=== PATIENT | male | born 1945 | race African-American/Black ===

== ENCOUNTER 2019-01-26 11:01 | Inpatient (IN) | payer MEDICARE, OTHER ==
[~2019-01-26] VITALS: Ht 167.6 cm; Wt 63.2 kg
[~2019-01-26 11:01] MED LIST: ALLO300T2 PO; AMLO10TA55 PO; BENA40TA9 PO; CHLO25TA3 PO; DOCU250C91 PO; FENO160T11 PO; FERR-89 PO; OMEP20 PO; POTA8TAB60 PO
[2019-01-26] MEDS ORDERED: BARIUM SULFATE 0.1% SUSPENSION 450 ML BOTTLE PO ONE (11:30)
[2019-01-26 12:06] LABS: BASOPHILS % (AUTO) 1.5 % (0.0-2.0); EOSINOPHILS % (AUTO) 1.3 % (1.0-6.0); HEMATOCRIT 27.3 % (41-53); HEMOGLOBIN 8.6 g/dL (13.5-17.5); LYMPHOCYTES # (AUTO) 2.6 K/uL (1.0-4.8); LYMPHOCYTES % (AUTO) 34.9 % (22.0-44.0); MEAN CORPUSCULAR HEMOGLOBIN 22.4 pg (26.0-34.0); MEAN CORPUSCULAR HGB CONC 31.5 G/dL (31.0-37.0); MEAN CORPUSCULAR VOLUME 71 fL (80-100); MONOCYTES # (AUTO) 0.2 K/uL (0.1-1.0); MONOCYTES % (AUTO) 2.2 % (2.0-9.0); NEUTROPHILS # (AUTO) 4.4 K/uL (1.8-7.7); NEUTROPHILS % (AUTO) 60.1 % (40.0-70.0); RED BLOOD CELL COUNT(AUTO) 3.84 MIL/uL (4.50-5.90); RED CELL DISTRIBUTION WIDTH 39.2 % (11.5-14.5)
[2019-01-26 12:13] LABS: ANION GAP 6 mmol/L (8-16); CALCIUM, TOTAL 9.1 mg/dL (8.8-10.5); CARBON DIOXIDE 26 mmol/L (22-29); CHLORIDE 105 mmol/L (98-107); CREATININE 1.31 mg/dL (0.60-1.30); GLOMERULAR FILTR. RATE CALC > 60 mL/min (>60); GLUCOSE,RANDOM 111 mg/dL (70-110); POTASSIUM 3.5 mmol/L (3.5-5.1); SODIUM SERUM 137 mmol/L (136-145); UREA NITROGEN, BLOOD 17 mg/dL (7-18)
[2019-01-26 12:18] LABS: ALANINE AMINOTRANSFERASE 20 U/L (12-78); ALBUMIN 3.1 g/dL (3.4-5.0); ALKALINE PHOSPHATASE 26 U/L (46-116); ASPARTATE AMINOTRANSFERASE 22 U/L (15-37); BILIRUBIN,TOTAL 0.3 mg/dL (0.1-1.0); TOTAL PROTEIN, SERUM 6.7 g/dL (6.4-8.2)
[2019-01-26 12:23] LABS: PLATELET COUNT (AUTO) 873 K/uL (150-450)
[2019-01-26 12:38] LABS: PLATELET MORPHOLOGY COMMENT GIANT PLTS PRESENT
[2019-01-26] MEDS ORDERED: IOVERSOL 350 MG/ML 100 ML VIAL ONE (12:58)
[2019-01-26] MEDS ORDERED: SODIUM CHLORIDE 0.9% 100 ML ONE (12:58)
[2019-01-26] MEDS ORDERED: ONDANSETRON HCL 4 MG/2 ML VIAL IVP PRN ×2 (13:00→16:15)
[2019-01-26] MEDS ORDERED: ACETAMINOPHEN 325 MG TABLET PO PRN (13:00)
[2019-01-26 15:10] VITALS: BP 115/68
[2019-01-26] MEDS ORDERED: MAGNESIUM OXIDE 400 MG TABLET PO PRN (16:15)
[2019-01-26] MEDS ORDERED: MAGNESIUM SULFATE 2 GM/WATER 50 ML IV PRN (16:15)
[2019-01-26] MEDS ORDERED: OxyCODONE HCL/ACETAMINOPHEN 5-325 MG TABLET PO PRN (16:15)
[2019-01-26] MEDS ORDERED: ZOLPIDEM TARTRATE 5 MG TABLET PO PRN (16:15)
[2019-01-26] MEDS ORDERED: MAGNESIUM SULFATE 4 GM/WATER 100 ML IV PRN (16:15)
[2019-01-26] MEDS ORDERED: MAGNESIUM HYDROXIDE SUSPENSION 30 ML UDCUP PO PRN (16:15)
[2019-01-26] MEDS ORDERED: POTASSIUM CHL 10 MEQ/WATER 50 ML IV PRN (16:15)
[2019-01-26] MEDS ORDERED: ALBUTEROL SULFATE 2.5 MG/0.5 ML NEB SOLUTION NEB PRN (16:15)
[2019-01-26] MEDS ORDERED: POTASSIUM CHLORIDE 20 MEQ ER TABLET PO PRN (16:15)
[2019-01-26] MEDS ORDERED: IPRATROPIUM BROMIDE 0.5 MG/2.5 ML NEB SOLUTION NEB PRN (16:15)
[2019-01-26] MEDS ORDERED: MORPHINE SULFATE 2 MG/ML SYRINGE IVP PRN (16:15)
[2019-01-26] MEDS ORDERED: BISACODYL 10 MG RECTAL RECTAL SUPPOSITORY PR PRN (16:15)
[2019-01-26] MEDS: FERROUS SULFATE 325 MG EC TABLET PO SCH (18:00)
[2019-01-26 19:06] VITALS: BP 127/62
[2019-01-26] MEDS: DOXYCYCLINE HYCLATE 100 MG CAPSULE PO SCH (20:01)
[2019-01-26] MEDS: MetroNIDAZOLE 500 MG TABLET PO SCH (20:01)
[2019-01-26] MEDS ORDERED: BISMUTH SUBSALICYLATE 262 MG CHEWABLE TABLET CHEW SCH (21:00)
[2019-01-26] MEDS: BISMUTH SUBSALICYLATE 262 MG CHEWABLE TABLET CHEW SCH (21:00)
[2019-01-26] MEDS: OMEPRAZOLE 20 MG CAPSULE PO SCH (22:06)
[2019-01-26 23:42] VITALS: BP 119/64
[2019-01-27] VITALS (21 sets, daily range): BP systolic 100–130; BP diastolic 52–74
[2019-01-27 06:24] LABS: BASOPHILS % (AUTO) 1.9 % (0.0-2.0); EOSINOPHILS % (AUTO) 3.5 % (1.0-6.0); HEMATOCRIT 24.5 % (41-53); HEMOGLOBIN 7.7 g/dL (13.5-17.5); LYMPHOCYTES # (AUTO) 2.6 K/uL (1.0-4.8); LYMPHOCYTES % (AUTO) 45.1 % (22.0-44.0); MEAN CORPUSCULAR HEMOGLOBIN 22.6 pg (26.0-34.0); MEAN CORPUSCULAR HGB CONC 31.4 G/dL (31.0-37.0); MEAN CORPUSCULAR VOLUME 72 fL (80-100); MONOCYTES # (AUTO) 0.3 K/uL (0.1-1.0); NEUTROPHILS # (AUTO) 2.6 K/uL (1.8-7.7); NEUTROPHILS % (AUTO) 44.5 % (40.0-70.0); PLATELET COUNT (AUTO) 683 K/uL (150-450); RED CELL DISTRIBUTION WIDTH 38.5 % (11.5-14.5)
[2019-01-27 06:38] LABS: ALANINE AMINOTRANSFERASE 15 U/L (12-78); ALBUMIN 2.6 g/dL (3.4-5.0); ALKALINE PHOSPHATASE 23 U/L (46-116); ANION GAP 7 mmol/L (8-16); ASPARTATE AMINOTRANSFERASE 19 U/L (15-37); BILIRUBIN,TOTAL 0.3 mg/dL (0.1-1.0); CALCIUM, TOTAL 8.7 mg/dL (8.8-10.5); CARBON DIOXIDE 25 mmol/L (22-29); CHLORIDE 107 mmol/L (98-107); CREATININE 1.17 mg/dL (0.60-1.30); GLUCOSE,RANDOM 87 mg/dL (70-110); POTASSIUM 3.7 mmol/L (3.5-5.1); SODIUM SERUM 139 mmol/L (136-145); TOTAL PROTEIN, SERUM 5.8 g/dL (6.4-8.2); UREA NITROGEN, BLOOD 12 mg/dL (7-18)
[2019-01-27 06:42] LABS: GLOMERULAR FILTR. RATE CALC > 60 mL/min (>60)
[2019-01-27] MEDS: MetroNIDAZOLE 500 MG TABLET PO SCH ×2 (08:00→20:19)
[2019-01-27] MEDS: AmLODIPine BESYLATE 10 MG TABLET PO SCH (08:00)
[2019-01-27] MEDS: OMEPRAZOLE 20 MG CAPSULE PO SCH ×2 (08:00→20:20)
[2019-01-27] MEDS: FERROUS SULFATE 325 MG EC TABLET PO SCH ×3 (08:00→18:14)
[2019-01-27] MEDS: BISMUTH SUBSALICYLATE 262 MG CHEWABLE TABLET CHEW SCH ×4 (08:01→20:20)
[2019-01-27] MEDS: FENOFIBRATE 160 MG TABLET PO SCH (08:01)
[2019-01-27] MEDS: DOXYCYCLINE HYCLATE 100 MG CAPSULE PO SCH ×2 (08:01→20:19)
[2019-01-27] MEDS: CHLORTHALIDONE 25 MG TABLET PO SCH (08:01)
[2019-01-27] MEDS: ALLOPURINOL 300 MG TABLET PO SCH (08:01)
[2019-01-27] MEDS ORDERED: PANTOPRAZOLE SODIUM 40 MG DR TABLET PO SCH (09:00)
[2019-01-27] MEDS ORDERED: OMEPRAZOLE 20 MG CAPSULE PO SCH (09:00)
[2019-01-27] MEDS ORDERED: MAGNESIUM CITRATE 300 ML ORAL SOLUTION PO ONE (12:15)
[2019-01-27] MEDS ORDERED: NEOMYCIN SULFATE 500 MG TABLET PO ONE ×3 (13:00→23:00)
[2019-01-27] MEDS ORDERED: ERYTHROMYCIN BASE 500 MG TABLET PO ONE ×3 (13:00→23:00)
[2019-01-27] MEDS ORDERED: SODIUM CHLORIDE 0.9% 1,000 ML IV ONE (13:29)
[2019-01-28] VITALS (11 sets, daily range): BP systolic 110–128; BP diastolic 63–78
[2019-01-28] MEDS ORDERED: RINGERS SOLUTION,LACTATED 1,000 ML IV ONE (06:56)
[2019-01-28] MEDS ORDERED: ACETAMINOPHEN 1000 MG/ISO-OSM 100 ML IV ONE (06:56)
[2019-01-28] MEDS ORDERED: SODIUM CHLORIDE 0.9% 100 ML ONE (06:56)
[2019-01-28 07:22] LABS: BASOPHILS % (AUTO) 1.9 % (0.0-2.0); EOSINOPHILS % (AUTO) 5.2 % (1.0-6.0); HEMATOCRIT 30.8 % (41-53); LYMPHOCYTES # (AUTO) 2.4 K/uL (1.0-4.8); MEAN CORPUSCULAR HEMOGLOBIN 24.1 pg (26.0-34.0); MEAN CORPUSCULAR HGB CONC 32.5 G/dL (31.0-37.0); MEAN CORPUSCULAR VOLUME 74 fL (80-100); MONOCYTES # (AUTO) 0.3 K/uL (0.1-1.0); MONOCYTES % (AUTO) 5.1 % (2.0-9.0); NEUTROPHILS # (AUTO) 2.7 K/uL (1.8-7.7); NEUTROPHILS % (AUTO) 46.8 % (40.0-70.0); PLATELET COUNT (AUTO) 645 K/uL (150-450); RED BLOOD CELL COUNT(AUTO) 4.15 MIL/uL (4.50-5.90); RED CELL DISTRIBUTION WIDTH 34.3 % (11.5-14.5)
[2019-01-28] MEDS ORDERED: BUPIVACAINE 0.25%/EPI 1:200,000/PF 10 ML VIAL ONE (07:33)
[2019-01-28 07:36] LABS: INR 1.1 (0.9-1.1); PROTHROMBIN TIME 11.4 SEC (9.4-11.6)
[2019-01-28 07:41] LABS: ALANINE AMINOTRANSFERASE 13 U/L (12-78); ALBUMIN 2.8 g/dL (3.4-5.0); ALKALINE PHOSPHATASE 25 U/L (46-116); ANION GAP 9 mmol/L (8-16); ASPARTATE AMINOTRANSFERASE 27 U/L (15-37); BILIRUBIN,TOTAL 0.6 mg/dL (0.1-1.0); CALCIUM, TOTAL 8.6 mg/dL (8.8-10.5); CARBON DIOXIDE 23 mmol/L (22-29); CHLORIDE 106 mmol/L (98-107); CREATININE 1.01 mg/dL (0.60-1.30); GLUCOSE,RANDOM 86 mg/dL (70-110); PHOSPHORUS 2.7 mg/dL (2.5-4.9); POTASSIUM 3.6 mmol/L (3.5-5.1); SODIUM SERUM 138 mmol/L (136-145); TOTAL PROTEIN, SERUM 5.9 g/dL (6.4-8.2); UREA NITROGEN, BLOOD 9 mg/dL (7-18)
[2019-01-28 07:42] LABS: GLOMERULAR FILTR. RATE CALC > 60 mL/min (>60)
[2019-01-28] MEDS: FERROUS SULFATE 325 MG EC TABLET PO SCH ×3 (08:00→18:00)
[2019-01-28] MEDS ORDERED: MetroNIDAZOLE 500 MG/NACL 100 ML IV ONE (08:00)
[2019-01-28] MEDS ORDERED: SODIUM CHLORIDE 0.9% IRRIG BAG 1,000 ML IRRIG ONE (08:16)
[2019-01-28] MEDS ORDERED: BUPIVACAINE LIPOSOME/PF 1.3%-13.3MG/ML SUSPENSION 20 ML VIAL INJ ONE (08:30)
[2019-01-28] MEDS: OMEPRAZOLE 20 MG CAPSULE PO SCH ×2 (09:00→20:50)
[2019-01-28] MEDS: DOXYCYCLINE HYCLATE 100 MG CAPSULE PO SCH (09:00)
[2019-01-28] MEDS: FENOFIBRATE 160 MG TABLET PO SCH (09:00)
[2019-01-28] MEDS: BISMUTH SUBSALICYLATE 262 MG CHEWABLE TABLET CHEW SCH ×4 (09:00→20:50)
[2019-01-28] MEDS: ALLOPURINOL 300 MG TABLET PO SCH (09:00)
[2019-01-28] MEDS: MetroNIDAZOLE 500 MG TABLET PO SCH (09:00)
[2019-01-28] MEDS ORDERED: BUPIVACAINE HCL/PF 0.5% 10 ML VIAL ONE (09:28)
[2019-01-28] MEDS ORDERED: FentaNYL CITRATE-PF 100 MCG/2 ML VIAL IVP PRN (09:30)
[2019-01-28] MEDS ORDERED: HYDROmorphone 2 MG/ML SYRINGE IVP PRN (09:30)
[2019-01-28] MEDS ORDERED: SODIUM CHLORIDE 0.9% 500 ML IV ONE (11:42)
[2019-01-28] MEDS: CeFAZolin 1 GM/DEXTROSE 50 ML IV SCH ×2 (11:50→20:50)
[2019-01-28] MEDS ORDERED: LIDOCAINE/PF 2% 5 ML VIAL INJ ONE (12:00)
[2019-01-28] MEDS ORDERED: DEXAMETHASONE SOD PHOS 4 MG/ML VIAL IVP ONE (12:00)
[2019-01-28] MEDS ORDERED: 0.9% SODIUM CHLORIDE 10 ML VIAL IVP ONE (12:00)
[2019-01-28] MEDS ORDERED: FentaNYL CITRATE-PF 100 MCG/2 ML VIAL IVP ONE (12:00)
[2019-01-28] MEDS ORDERED: MIDAZOLAM HCL 2 MG/2 ML VIAL IVP ONE (12:00)
[2019-01-28] MEDS ORDERED: PROPOFOL 1% 20 ML VIAL IVP ONE (12:00)
[2019-01-28] MEDS ORDERED: HYDROmorphone 2 MG/ML SYRINGE IVP ONE (12:00)
[2019-01-28] MEDS ORDERED: SUCCINYLCHOLINE CHLORIDE 20 MG/ML 10 ML VIAL IVP ONE (12:00)
[2019-01-28] MEDS ORDERED: ROCURONIUM BROMIDE 10 MG/ML 5 ML VIAL IVP ONE (12:00)
[2019-01-28] MEDS ORDERED: NEOSTIGMINE METHYLSULFATE 1 MG/ML 10 ML VIAL IVP ONE (12:00)
[2019-01-28] MEDS ORDERED: EPHEDrine SULFATE 50 MG/ML VIAL IM ONE (12:00)
[2019-01-28] MEDS ORDERED: ONDANSETRON HCL 4 MG/2 ML VIAL IVP ONE (12:00)
[2019-01-28] MEDS ORDERED: GLYCOPYRROLATE 0.2 MG/ML VIAL IM ONE (12:00)
[2019-01-28] MEDS: MetroNIDAZOLE 500 MG/NACL 100 ML IV SCH ×2 (12:34→20:53)
[2019-01-28] MEDS: AmLODIPine BESYLATE 10 MG TABLET PO SCH (18:44)
[2019-01-28] MEDS: CHLORTHALIDONE 25 MG TABLET PO SCH (18:44)
[2019-01-28] MEDS ORDERED: BISACODYL 10 MG RECTAL RECTAL SUPPOSITORY PR ONE (18:45)
[2019-01-28] MEDS ORDERED: OXYGEN THERAPY IH SCH (20:00)
[2019-01-29 04:27] VITALS: BP 116/63
[2019-01-29 05:29] LABS: BASOPHILS % (AUTO) 0.3 % (0.0-2.0); EOSINOPHILS % (AUTO) 0.1 % (1.0-6.0); HEMATOCRIT 32.7 % (41-53); HEMOGLOBIN 10.5 g/dL (13.5-17.5); LYMPHOCYTES # (AUTO) 2.5 K/uL (1.0-4.8); MEAN CORPUSCULAR HEMOGLOBIN 23.7 pg (26.0-34.0); MEAN CORPUSCULAR HGB CONC 32.1 G/dL (31.0-37.0); MEAN CORPUSCULAR VOLUME 74 fL (80-100); MONOCYTES # (AUTO) 0.5 K/uL (0.1-1.0); MONOCYTES % (AUTO) 4.3 % (2.0-9.0); NEUTROPHILS # (AUTO) 7.8 K/uL (1.8-7.7); NEUTROPHILS % (AUTO) 72.3 % (40.0-70.0); PLATELET COUNT (AUTO) 667 K/uL (150-450); RED BLOOD CELL COUNT(AUTO) 4.42 MIL/uL (4.50-5.90); RED CELL DISTRIBUTION WIDTH 34.9 % (11.5-14.5)
[2019-01-29 05:44] LABS: ALANINE AMINOTRANSFERASE 14 U/L (12-78); ALBUMIN 2.8 g/dL (3.4-5.0); ALKALINE PHOSPHATASE 23 U/L (46-116); ANION GAP 10 mmol/L (8-16); ASPARTATE AMINOTRANSFERASE 20 U/L (15-37); BILIRUBIN,TOTAL 0.5 mg/dL (0.1-1.0); CALCIUM, TOTAL 8.7 mg/dL (8.8-10.5); CARBON DIOXIDE 26 mmol/L (22-29); CHLORIDE 102 mmol/L (98-107); CREATININE 1.25 mg/dL (0.60-1.30); GLUCOSE,RANDOM 116 mg/dL (70-110); PHOSPHORUS 2.9 mg/dL (2.5-4.9); SODIUM SERUM 138 mmol/L (136-145); TOTAL PROTEIN, SERUM 6.6 g/dL (6.4-8.2); UREA NITROGEN, BLOOD 12 mg/dL (7-18)
[2019-01-29 06:12] LABS: GLOMERULAR FILTR. RATE CALC > 60 mL/min (>60)
[2019-01-29 07:36] VITALS: BP 111/68
[2019-01-29] MEDS: FERROUS SULFATE 325 MG EC TABLET PO SCH ×3 (08:00→16:11)
[2019-01-29 08:16] LABS: PLATELET MORPHOLOGY COMMENT LARGE PLTS PRESENT
[2019-01-29] MEDS: BISMUTH SUBSALICYLATE 262 MG CHEWABLE TABLET CHEW SCH ×4 (08:50→20:26)
[2019-01-29] MEDS: FENOFIBRATE 160 MG TABLET PO SCH (08:50)
[2019-01-29] MEDS: ALLOPURINOL 300 MG TABLET PO SCH (08:51)
[2019-01-29] MEDS: AmLODIPine BESYLATE 10 MG TABLET PO SCH (08:53)
[2019-01-29] MEDS: CHLORTHALIDONE 25 MG TABLET PO SCH (08:56)
[2019-01-29] MEDS: OMEPRAZOLE 20 MG CAPSULE PO SCH ×2 (08:56→20:26)
[2019-01-29] MEDS ORDERED: ACETAMINOPHEN 325 MG TABLET PO PRN (10:45)
[2019-01-29 11:26] VITALS: BP_SYST 12; BP_SYST 121; BP_DIAS 67
[2019-01-29] MEDS: ACETAMINOPHEN 325 MG TABLET PO PRN ×3 (11:33→20:29)
[2019-01-29 11:49] LABS: GLUCOMETER DEV NAME(LOC) 5N.2; GLUCOSE,POINT OF CARE 92 MG/DL (70-110)
[2019-01-29 15:57] VITALS: BP 132/71
[2019-01-29 19:40] VITALS: BP 122/68
[2019-01-29 19:56] VITALS: BP 121/68
[2019-01-29] MEDS ORDERED: KETOROLAC TROMETHAMINE 30 MG/ML VIAL IVP PRN (20:45)
[2019-01-29] MEDS ORDERED: TraMADol HCL 50 MG TABLET PO PRN (20:45)
[2019-01-30 00:02] VITALS: BP 114/70
[2019-01-30] MEDS: ACETAMINOPHEN 325 MG TABLET PO PRN (03:13)
[2019-01-30 04:33] VITALS: BP 127/94
[2019-01-30 06:23] LABS: BASOPHILS % (AUTO) 0.7 % (0.0-2.0); EOSINOPHILS % (AUTO) 1.1 % (1.0-6.0); HEMATOCRIT 30.2 % (41-53); HEMOGLOBIN 9.8 g/dL (13.5-17.5); LYMPHOCYTES # (AUTO) 2.3 K/uL (1.0-4.8); LYMPHOCYTES % (AUTO) 29.4 % (22.0-44.0); MEAN CORPUSCULAR HEMOGLOBIN 24.2 pg (26.0-34.0); MEAN CORPUSCULAR HGB CONC 32.3 G/dL (31.0-37.0); MEAN CORPUSCULAR VOLUME 75 fL (80-100); MONOCYTES # (AUTO) 0.5 K/uL (0.1-1.0); NEUTROPHILS % (AUTO) 62.8 % (40.0-70.0); PLATELET COUNT (AUTO) 600 K/uL (150-450); RED BLOOD CELL COUNT(AUTO) 4.03 MIL/uL (4.50-5.90); RED CELL DISTRIBUTION WIDTH 34.2 % (11.5-14.5)
[2019-01-30 06:25] LABS: ALANINE AMINOTRANSFERASE 11 U/L (12-78); ALBUMIN 2.8 g/dL (3.4-5.0); ALKALINE PHOSPHATASE 23 U/L (46-116); ANION GAP 9 mmol/L (8-16); ASPARTATE AMINOTRANSFERASE 17 U/L (15-37); BILIRUBIN,TOTAL 0.5 mg/dL (0.1-1.0); CALCIUM, TOTAL 8.7 mg/dL (8.8-10.5); CARBON DIOXIDE 26 mmol/L (22-29); CHLORIDE 103 mmol/L (98-107); CREATININE 1.09 mg/dL (0.60-1.30); GLUCOSE,RANDOM 83 mg/dL (70-110); POTASSIUM 3.7 mmol/L (3.5-5.1); SODIUM SERUM 138 mmol/L (136-145); TOTAL PROTEIN, SERUM 6.3 g/dL (6.4-8.2); UREA NITROGEN, BLOOD 12 mg/dL (7-18)
[2019-01-30 06:30] LABS: GLOMERULAR FILTR. RATE CALC > 60 mL/min (>60)
[2019-01-30 07:19] VITALS: BP 117/68
[2019-01-30] MEDS: OMEPRAZOLE 20 MG CAPSULE PO SCH ×2 (09:17→20:27)
[2019-01-30] MEDS: FENOFIBRATE 160 MG TABLET PO SCH (09:17)
[2019-01-30] MEDS: CHLORTHALIDONE 25 MG TABLET PO SCH (09:17)
[2019-01-30] MEDS: FERROUS SULFATE 325 MG EC TABLET PO SCH ×2 (09:17→12:39)
[2019-01-30] MEDS: BISMUTH SUBSALICYLATE 262 MG CHEWABLE TABLET CHEW SCH ×5 (09:18→21:00)
[2019-01-30] MEDS: AmLODIPine BESYLATE 10 MG TABLET PO SCH (09:18)
[2019-01-30] MEDS: ALLOPURINOL 300 MG TABLET PO SCH (09:20)
[2019-01-30 11:18] VITALS: BP 110/64
[2019-01-30 15:50] VITALS: BP 119/64
[2019-01-30] MEDS: TraMADol HCL 50 MG TABLET PO PRN ×2 (16:04→21:54)
[2019-01-30 19:38] VITALS: BP 109/66
[2019-01-31 04:15] VITALS: BP 110/68
[2019-01-31 06:11] LABS: BASOPHILS % (AUTO) 0.7 % (0.0-2.0); HEMATOCRIT 29.7 % (41-53); HEMOGLOBIN 9.7 g/dL (13.5-17.5); LYMPHOCYTES # (AUTO) 2.3 K/uL (1.0-4.8); LYMPHOCYTES % (AUTO) 38.1 % (22.0-44.0); MEAN CORPUSCULAR HEMOGLOBIN 24.3 pg (26.0-34.0); MEAN CORPUSCULAR HGB CONC 32.6 G/dL (31.0-37.0); MEAN CORPUSCULAR VOLUME 75 fL (80-100); MONOCYTES # (AUTO) 0.4 K/uL (0.1-1.0); MONOCYTES % (AUTO) 6.3 % (2.0-9.0); NEUTROPHILS # (AUTO) 3.1 K/uL (1.8-7.7); NEUTROPHILS % (AUTO) 51.9 % (40.0-70.0); PLATELET COUNT (AUTO) 578 K/uL (150-450); RED BLOOD CELL COUNT(AUTO) 3.98 MIL/uL (4.50-5.90); RED CELL DISTRIBUTION WIDTH 34.8 % (11.5-14.5)
[2019-01-31 07:54] VITALS: BP 113/65
[2019-01-31] MEDS: FERROUS SULFATE 325 MG EC TABLET PO SCH ×3 (09:10→17:22)
[2019-01-31] MEDS: ALLOPURINOL 300 MG TABLET PO SCH ×2 (09:10→09:43)
[2019-01-31] MEDS: OMEPRAZOLE 20 MG CAPSULE PO SCH ×2 (09:10→21:29)
[2019-01-31] MEDS: FENOFIBRATE 160 MG TABLET PO SCH (09:10)
[2019-01-31] MEDS: CHLORTHALIDONE 25 MG TABLET PO SCH (09:10)
[2019-01-31] MEDS: AmLODIPine BESYLATE 10 MG TABLET PO SCH (09:10)
[2019-01-31] MEDS: BISACODYL 10 MG RECTAL RECTAL SUPPOSITORY PR ONE ×2 (09:11→14:54)
[2019-01-31] MEDS: BISMUTH SUBSALICYLATE 262 MG CHEWABLE TABLET CHEW SCH ×4 (09:11→20:25)
[2019-01-31 11:32] VITALS: BP 120/63
[2019-01-31 20:25] VITALS: BP 118/69
[2019-01-31] MEDS: TraMADol HCL 50 MG TABLET PO PRN (22:33)
[2019-01-31 23:52] VITALS: BP 120/65
[2019-02-01 05:00] VITALS: BP 125/67
[2019-02-01 08:44] VITALS: BP 111/59
[2019-02-01] MEDS: FENOFIBRATE 160 MG TABLET PO SCH (08:47)
[2019-02-01] MEDS: AmLODIPine BESYLATE 10 MG TABLET PO SCH (08:47)
[2019-02-01] MEDS: FERROUS SULFATE 325 MG EC TABLET PO SCH ×3 (08:47→18:02)
[2019-02-01] MEDS: BISMUTH SUBSALICYLATE 262 MG CHEWABLE TABLET CHEW SCH ×4 (08:47→21:07)
[2019-02-01] MEDS: OMEPRAZOLE 20 MG CAPSULE PO SCH ×2 (08:47→21:07)
[2019-02-01] MEDS: TraMADol HCL 50 MG TABLET PO PRN (08:47)
[2019-02-01] MEDS: CHLORTHALIDONE 25 MG TABLET PO SCH (08:48)
[2019-02-01 11:39] VITALS: BP 112/60
[2019-02-01 12:31] LABS: BASOPHILS % (AUTO) 1.1 % (0.0-2.0); EOSINOPHILS % (AUTO) 5.7 % (1.0-6.0); HEMATOCRIT 31.3 % (41-53); LYMPHOCYTES # (AUTO) 1.5 K/uL (1.0-4.8); LYMPHOCYTES % (AUTO) 26.3 % (22.0-44.0); MEAN CORPUSCULAR HGB CONC 31.8 G/dL (31.0-37.0); MEAN CORPUSCULAR VOLUME 76 fL (80-100); MONOCYTES # (AUTO) 0.3 K/uL (0.1-1.0); MONOCYTES % (AUTO) 5.1 % (2.0-9.0); NEUTROPHILS # (AUTO) 3.5 K/uL (1.8-7.7); NEUTROPHILS % (AUTO) 61.8 % (40.0-70.0); PLATELET COUNT (AUTO) 556 K/uL (150-450); RED BLOOD CELL COUNT(AUTO) 4.14 MIL/uL (4.50-5.90); RED CELL DISTRIBUTION WIDTH 34.5 % (11.5-14.5)
[2019-02-01 12:44] LABS: ALANINE AMINOTRANSFERASE 13 U/L (12-78); ALBUMIN 2.8 g/dL (3.4-5.0); ALKALINE PHOSPHATASE 27 U/L (46-116); ANION GAP 6 mmol/L (8-16); ASPARTATE AMINOTRANSFERASE 15 U/L (15-37); BILIRUBIN,TOTAL 0.3 mg/dL (0.1-1.0); CALCIUM, TOTAL 9.1 mg/dL (8.8-10.5); CARBON DIOXIDE 31 mmol/L (22-29); CHLORIDE 101 mmol/L (98-107); CREATININE 1.05 mg/dL (0.60-1.30); GLOMERULAR FILTR. RATE CALC > 60 mL/min (>60); GLUCOSE,RANDOM 98 mg/dL (70-110); POTASSIUM 3.7 mmol/L (3.5-5.1); SODIUM SERUM 138 mmol/L (136-145); TOTAL PROTEIN, SERUM 6.6 g/dL (6.4-8.2); UREA NITROGEN, BLOOD 12 mg/dL (7-18)
[2019-02-01 15:56] VITALS: BP 108/59
[2019-02-01 20:00] VITALS: BP 112/65
[2019-02-02] VITALS: BP 115/70
[2019-02-02 04:57] VITALS: BP 111/71
[2019-02-02 06:29] LABS: BASOPHILS % (AUTO) 1.4 % (0.0-2.0); EOSINOPHILS % (AUTO) 7.3 % (1.0-6.0); LYMPHOCYTES # (AUTO) 1.7 K/uL (1.0-4.8); MEAN CORPUSCULAR HEMOGLOBIN 24.5 pg (26.0-34.0); MEAN CORPUSCULAR HGB CONC 32.3 G/dL (31.0-37.0); MEAN CORPUSCULAR VOLUME 76 fL (80-100); MONOCYTES # (AUTO) 0.3 K/uL (0.1-1.0); MONOCYTES % (AUTO) 5.8 % (2.0-9.0); NEUTROPHILS # (AUTO) 2.9 K/uL (1.8-7.7); NEUTROPHILS % (AUTO) 53.5 % (40.0-70.0); PLATELET COUNT (AUTO) 534 K/uL (150-450); RED BLOOD CELL COUNT(AUTO) 4.09 MIL/uL (4.50-5.90); RED CELL DISTRIBUTION WIDTH 34.2 % (11.5-14.5)
[2019-02-02 07:20] VITALS: BP 117/66
[2019-02-02] MEDS: AmLODIPine BESYLATE 10 MG TABLET PO SCH (08:42)
[2019-02-02] MEDS: FERROUS SULFATE 325 MG EC TABLET PO SCH ×2 (08:42→12:04)
[2019-02-02] MEDS: ALLOPURINOL 300 MG TABLET PO SCH (08:44)
[2019-02-02] MEDS: OMEPRAZOLE 20 MG CAPSULE PO SCH (08:44)
[2019-02-02] MEDS: FENOFIBRATE 160 MG TABLET PO SCH (08:44)
[2019-02-02] MEDS: CHLORTHALIDONE 25 MG TABLET PO SCH (08:44)
[2019-02-02] MEDS: BISMUTH SUBSALICYLATE 262 MG CHEWABLE TABLET CHEW SCH ×2 (08:44→12:04)
[2019-02-02] MEDS ORDERED: TRAM50TA4 PO (10:46)
[2019-02-02 11:40] VITALS: BP 114/64
== END 2019-02-02 15:30 | disposition home or self-care (01) | DRG 330 ==
LOC: EMS 11:02 → 6N 13:25 → 5N 01-28 17:35 → 4E 01-31 14:35
PROVIDERS: ADMIT Internal Medicine; ATTEND Internal Medicine
PROC: 30233N1 Transfusion of Nonautologous Red Blood Cells into Peripheral Vein, Percutaneous Approach (ICD-10-PCS; 2019-01-27)
PROC: 0WQF4ZZ Repair Abdominal Wall, Percutaneous Endoscopic Approach (ICD-10-PCS; 2019-01-28)
PROC: 0WUF47Z Supplement Abdominal Wall with Autologous Tissue Substitute, Percutaneous Endoscopic Approach (ICD-10-PCS; 2019-01-28)
PROC: 0DTF4ZZ Resection of Right Large Intestine, Percutaneous Endoscopic Approach (ICD-10-PCS; principal; 2019-01-28 07:30)
DX: C18.9 Malignant neoplasm of colon, unspecified (principal); N17.9 Acute kidney failure, unspecified; B96.81 Helicobacter pylori [H. pylori] as the cause of diseases classified elsewhere; D50.0 Iron deficiency anemia secondary to blood loss (chronic); K29.70 Gastritis, unspecified, without bleeding; F10.20 Alcohol dependence, uncomplicated; E78.5 Hyperlipidemia, unspecified; I10 Essential (primary) hypertension; M10.9 Gout, unspecified; K42.9 Umbilical hernia without obstruction or gangrene; F12.90 Cannabis use, unspecified, uncomplicated; K66.0 Peritoneal adhesions (postprocedural) (postinfection); N28.1 Cyst of kidney, acquired; E86.1 Hypovolemia; M19.90 Unspecified osteoarthritis, unspecified site; Z79.899 Other long term (current) drug therapy; Z80.8 Family history of malignant neoplasm of other organs or systems; Z80.3 Family history of malignant neoplasm of breast; Z80.1 Family history of malignant neoplasm of trachea, bronchus and lung; Z82.49 Family history of ischemic heart disease and other diseases of the circulatory system; Z87.891 Personal history of nicotine dependence; Z87.11 Personal history of peptic ulcer disease; Z91.011 Allergy to milk products
CPT/HCPCS: 74177; 82378; 83735; 84100; 86850; 86900; 86901; 86920; 87081; 88309; 97116; 97161; 97166; 97530; 97535; C9290; G0378; J0131; J0330; J0690; J1100; J1170; J2250; J2270; J2405; J2704; J3010; J3490; J7030; J7040; J7050; J7120; P9016

== ENCOUNTER 2019-05-06 07:13 | Emergency (ER) | payer MEDICARE, OTHER ==
[~2019-05-06] VITALS: Ht 172.7 cm; Wt 65.9 kg
[~2019-05-06 07:13] MED LIST changes: -BENA40TA9 PO; -DOCU250C91 PO; +TRAM50TA4 PO
[2019-05-06] MEDS ORDERED: CAPE500T14 PO (07:30)
[2019-05-06 10:33] VITALS: BP 148/88
== END 2019-05-06 10:37 | disposition home or self-care (01) ==
LOC: EMS 07:19
DX: L98.6 Other infiltrative disorders of the skin and subcutaneous tissue (principal)

== ENCOUNTER → 2019-06-07 | Outpatient (CLI) | payer MEDICARE, OTHER ==
[~2019-06-07] MED LIST changes: +CAPE500T14 PO; +IOVERSOL 350 MG/ML 100 ML VIAL ONE; -OMEP20 PO; +SODIUM CHLORIDE 0.9% 100 ML ONE
== END | disposition home or self-care (01) ==
LOC: RADMN 08:40
PROVIDERS: ATTEND Internal Medicine Hematology & Oncology
DX: C18.2 Malignant neoplasm of ascending colon (principal); N28.1 Cyst of kidney, acquired; N20.0 Calculus of kidney; I25.10 Atherosclerotic heart disease of native coronary artery without angina pectoris; I70.0 Atherosclerosis of aorta; M16.0 Bilateral primary osteoarthritis of hip; M47.814 Spondylosis without myelopathy or radiculopathy, thoracic region
CPT/HCPCS: 71260; 72193; 74160; J7050; Q9967

== ENCOUNTER 2019-06-21 19:51 | Emergency (ER) | payer MEDICARE, OTHER ==
[~2019-06-21] VITALS: Ht 172.7 cm; Wt 68.2 kg
[~2019-06-21 19:51] MED LIST changes: -IOVERSOL 350 MG/ML 100 ML VIAL ONE; -SODIUM CHLORIDE 0.9% 100 ML ONE
[2019-06-21 19:53] VITALS: BP 129/79
== END 2019-06-21 21:02 | disposition home or self-care (01) ==
LOC: EMS 19:53
DX: Z48.01 Encounter for change or removal of surgical wound dressing (principal); I10 Essential (primary) hypertension; M19.90 Unspecified osteoarthritis, unspecified site; F17.210 Nicotine dependence, cigarettes, uncomplicated; Z85.038 Personal history of other malignant neoplasm of large intestine; Z92.21 Personal history of antineoplastic chemotherapy; Z79.899 Other long term (current) drug therapy; Z91.011 Allergy to milk products

== ENCOUNTER 2021-03-09 07:05 | Day surgery (SDC) | payer MEDICARE, OTHER ==
[2021-03-06 13:40] LABS: COVID AG,FIA SOURCE NASOPHARYNGEAL
[2021-03-06 13:42] LABS: BASOPHILS % (AUTO) 0.9 % (0.0-2.0); EOSINOPHILS % (AUTO) 2.1 % (1.0-6.0); HEMATOCRIT 42.3 % (41-53); HEMOGLOBIN 13.9 g/dL (13.5-17.5); LYMPHOCYTES # (AUTO) 1.1 K/uL (1.0-4.8); LYMPHOCYTES % (AUTO) 17.1 % (22.0-44.0); MEAN CORPUSCULAR HEMOGLOBIN 27.6 pg (26.0-34.0); MEAN CORPUSCULAR HGB CONC 32.8 G/dL (31.0-37.0); MEAN CORPUSCULAR VOLUME 84 fL (80-100); MONOCYTES # (AUTO) 0.5 K/uL (0.1-1.0); MONOCYTES % (AUTO) 8.3 % (2.0-9.0); NEUTROPHILS # (AUTO) 4.5 K/uL (1.8-7.7); NEUTROPHILS % (AUTO) 71.6 % (40.0-70.0); PLATELET COUNT (AUTO) 387 K/uL (150-450); RED BLOOD CELL COUNT(AUTO) 5.03 MIL/uL (4.50-5.90); RED CELL DISTRIBUTION WIDTH 15.3 % (11.5-14.5)
[2021-03-06 13:52] LABS: ANION GAP 10 mmol/L (8-16); CARBON DIOXIDE 29 mmol/L (22-29); CHLORIDE 102 mmol/L (98-107); CREATININE 1.16 mg/dL (0.60-1.30); GLUCOSE,RANDOM 97 mg/dL (70-110); POTASSIUM 3.4 mmol/L (3.5-5.1); SODIUM SERUM 141 mmol/L (136-145); UREA NITROGEN, BLOOD 20 mg/dL (7-18)
[2021-03-06 13:53] LABS: GLOMERULAR FILTR. RATE CALC > 60 mL/min (>60); INR 1.1 (0.9-1.1); PROTHROMBIN TIME 11.3 SEC (9.4-11.6)
[~2021-03-09] VITALS: Ht 172.7 cm; Wt 67.7 kg
[~2021-03-09 07:05] MED LIST changes: +POTA8TAB PO; -POTA8TAB60 PO; +SODIUM CHLORIDE 0.9% 0 ML ONE; +SODIUM CHLORIDE 0.9% 1,000 ML IV ONE; +SODIUM CHLORIDE 0.9% 1,000 ML ONE
[2021-03-09] MEDS ORDERED: LIDOCAINE/PF 1% 30 ML VIAL ONE (08:29)
[2021-03-09] MEDS ORDERED: SODIUM BICARBONATE 50 MEQ/50 ML VIAL ONE (08:29)
[2021-03-09] MEDS ORDERED: IOHEXOL 300 MG/ML 50 ML VIAL ONE ×2 (08:29→09:36)
[2021-03-09] MEDS ORDERED: IOHEXOL 300 MG/ML 100 ML VIAL ONE ×2 (08:29→09:36)
[2021-03-09] MEDS ORDERED: HEPARIN SODIUM 1000 UNITS/NS 1,000 ML ONE (08:29)
[2021-03-09] MEDS ORDERED: NITROGLYCERIN 50 MG/D5% WATER 250 ML ONE (08:36)
[2021-03-09] MEDS ORDERED: VERAPAMIL HCL 2.5 MG/ML 2 ML VIAL ONE (08:36)
[2021-03-09 08:54] VITALS: BP 137/73
[2021-03-09] MEDS ORDERED: MIDAZOLAM HCL 2 MG/2 ML VIAL ONE (09:04)
[2021-03-09] MEDS ORDERED: FentaNYL CITRATE PF 100 MCG/2 ML VIAL ONE (09:04)
[2021-03-09] MEDS ORDERED: IOHEXOL 300 MG/ML 50 ML VIAL IARTER ONE ×2 (09:30→10:00)
[2021-03-09] MEDS ORDERED: NITROGLYCERIN/D5W 50 MG/250 ML IV BOTTLE IARTER ONE (09:30)
[2021-03-09] MEDS ORDERED: IOHEXOL 300 MG/ML 100 ML VIAL IARTER ONE ×2 (09:30→10:00)
[2021-03-09] MEDS ORDERED: HEPARIN SODIUM,PORCINE 5,000 UNITS/ML VIAL IVP ONE (09:30)
[2021-03-09] MEDS ORDERED: HEPARIN SODIUM 1000 UNITS/NS 1,000 ML IARTER ONE (09:30)
[2021-03-09] MEDS ORDERED: LIDOCAINE 1% 30 ML/SOD BICARB 8.4% 4 ML SQ ONE (09:30)
[2021-03-09] MEDS ORDERED: VERAPAMIL HCL 2.5 MG/ML 2 ML VIAL IARTER ONE (09:30)
[2021-03-09] MEDS ORDERED: MIDAZOLAM HCL 2 MG/2 ML VIAL IVP ONE (09:30)
[2021-03-09] MEDS ORDERED: FentaNYL CITRATE PF 100 MCG/2 ML VIAL IVP ONE (09:30)
[2021-03-09] MEDS ORDERED: ASPIRIN 325 MG TABLET ONE (09:38)
[2021-03-09] MEDS ORDERED: TICAGRELOR 90 MG TABLET ONE (09:38)
[2021-03-09] MEDS ORDERED: EPTIFIBATIDE 2 MG/ML 10 ML VIAL IVP ONE ×2 (09:40→10:00)
[2021-03-09] MEDS ORDERED: TICAGRELOR 90 MG TABLET PO ONE (10:00)
[2021-03-09] MEDS ORDERED: ASPIRIN 325 MG TABLET PO ONE (10:00)
[2021-03-09] MEDS ORDERED: NITROGLYCERIN/D5W 50 MG/250 ML IV BOTTLE ICOR ONE (10:15)
[2021-03-09] MEDS ORDERED: VERAPAMIL HCL 2.5 MG/ML 2 ML VIAL ICOR ONE (10:15)
[2021-03-09 10:29] VITALS: BP 110/68
== END 2021-03-09 16:00 | disposition home or self-care (01) ==
LOC: CATHLAB 07:05
PROVIDERS: ATTEND Internal Medicine Cardiovascular Disease
DX: R07.9 Chest pain, unspecified (principal); I25.119 Atherosclerotic heart disease of native coronary artery with unspecified angina pectoris; R94.39 Abnormal result of other cardiovascular function study; M10.9 Gout, unspecified; I10 Essential (primary) hypertension; Z82.49 Family history of ischemic heart disease and other diseases of the circulatory system; Z98.890 Other specified postprocedural states; Z72.89 Other problems related to lifestyle; Z85.038 Personal history of other malignant neoplasm of large intestine; Z87.891 Personal history of nicotine dependence; Z88.8 Allergy status to other drugs, medicaments and biological substances; Z79.899 Other long term (current) drug therapy
CPT/HCPCS: 36415; 80048; 85025; 85610; 85730; 87426; 93005; 93458; 99152; 99153; C1874; C1887; C9600; C9803; J1327; J1644; J2250; J3010; J3490 ×4; J7030; Q9967 ×2; 92920; 92928; Z7610

== ENCOUNTER 2021-10-20 08:31 | Inpatient (IN) | payer MEDICARE, OTHER ==
[~2021-10-20] VITALS: Ht 170.2 cm; Wt 58.7 kg
[~2021-10-20 08:31] MED LIST changes: -SODIUM CHLORIDE 0.9% 0 ML ONE; -SODIUM CHLORIDE 0.9% 1,000 ML IV ONE; -SODIUM CHLORIDE 0.9% 1,000 ML ONE
[2021-10-20] MEDS ORDERED: SODIUM CHLORIDE 0.9% 1,000 ML IV ONE ×2 (08:45→12:30)
[2021-10-20 08:57] LABS: BASOPHILS % (AUTO) 0.5 % (0.0-2.0); EOSINOPHILS % (AUTO) 0.4 % (1.0-6.0); HEMOGLOBIN 12.3 g/dL (13.5-17.5); LYMPHOCYTES # (AUTO) 0.8 K/uL (1.0-4.8); LYMPHOCYTES % (AUTO) 5.2 % (22.0-44.0); MEAN CORPUSCULAR HEMOGLOBIN 26.7 pg (26.0-34.0); MEAN CORPUSCULAR HGB CONC 32.4 G/dL (31.0-37.0); MEAN CORPUSCULAR VOLUME 82 fL (80-100); MONOCYTES # (AUTO) 1.1 K/uL (0.1-1.0); MONOCYTES % (AUTO) 7.4 % (2.0-9.0); NEUTROPHILS # (AUTO) 12.4 K/uL (1.8-7.7); PLATELET COUNT (AUTO) 451 K/uL (150-450); RED BLOOD CELL COUNT(AUTO) 4.62 MIL/uL (4.50-5.90); RED CELL DISTRIBUTION WIDTH 15.3 % (11.5-14.5)
[2021-10-20 08:58] LABS: NEUTROPHILS % (AUTO) 86.5 % (40.0-70.0)
[2021-10-20] MEDS ORDERED: DILTIAZEM HCL 5 MG/ML 5 ML VIAL IVP ONE (09:00)
[2021-10-20] MEDS ORDERED: AMIODARONE HCL 360 MG in DEXTROSE 5%-WATER 242.8 ML IV ONE (09:00)
[2021-10-20 09:06] LABS: ANION GAP 11 mmol/L (8-16); CALCIUM, TOTAL 10.3 mg/dL (8.8-10.5); CARBON DIOXIDE 26 mmol/L (22-29); CHLORIDE 100 mmol/L (98-107); CREATININE 1.21 mg/dL (0.60-1.30); GLUCOSE,RANDOM 119 mg/dL (70-110); POTASSIUM 3.1 mmol/L (3.5-5.1); SODIUM SERUM 137 mmol/L (136-145); UREA NITROGEN, BLOOD 21 mg/dL (7-18)
[2021-10-20 09:07] LABS: GLOMERULAR FILTR. RATE CALC > 60 mL/min (>60)
[2021-10-20 09:12] LABS: ALANINE AMINOTRANSFERASE 22 U/L (12-78); ALBUMIN 3.2 g/dL (3.4-5.0); ALKALINE PHOSPHATASE 49 U/L (46-116); ASPARTATE AMINOTRANSFERASE 28 U/L (15-37); CREATINE KINASE, TOTAL ONLY 44 U/L (39-308); PHOSPHORUS 2.2 mg/dL (2.5-4.9); TOTAL PROTEIN, SERUM 7.9 g/dL (6.4-8.2)
[2021-10-20 09:15] LABS: INR 1.2 (0.9-1.1); PROTHROMBIN TIME 12.4 SEC (9.4-11.6)
[2021-10-20 09:23] LABS: B-TYPE NATRIURETIC PEPTIDE 125 pg/mL (0-100)
[2021-10-20] MEDS ORDERED: DIGOXIN 250 MCG/ML 2 ML AMP IVP ONE (09:30)
[2021-10-20] MEDS ORDERED: POTASSIUM CHLORIDE 20 MEQ ER TABLET PO ONE (09:30)
[2021-10-20] MEDS ORDERED: POTASSIUM PHOS,M-BASIC-D-BASIC 10 MMOL in DEXTROSE 5%-WATER 100 ML IV ONE (09:45)
[2021-10-20] MEDS ORDERED: METOPROLOL TARTRATE 50 MG TABLET PO ONE (10:15)
[2021-10-20 10:42] LABS: COVID AG,FIA SOURCE NASOPHARYNGEAL
[2021-10-20 11:11] LABS: APPEARANCE,URINE CLEAR (CLEAR); BILIRUBIN,URINE NEGATIVE (NEGATIVE); GLUCOSE, URINE (UA) NEGATIVE (NEGATIVE); KETONES,URINE NEGATIVE (NEGATIVE); LEUKOCYTE ESTERASE ,URINE NEGATIVE (NEGATIVE); NITRATE,URINE NEGATIVE (NEGATIVE); OCCULT BLOOD,URINE NEGATIVE (NEGATIVE); PH,URINE 6.5 (5.0-8.0); PROTEIN,URINE NEGATIVE (NEGATIVE); UROBILINOGEN,URINE 0.2 mg/dL (<=1.0)
[2021-10-20] MEDS ORDERED: ALBUTEROL SULFATE 2.5 MG/0.5 ML NEB SOLUTION NEB PRN (12:30)
[2021-10-20] MEDS ORDERED: MAGNESIUM HYDROXIDE SUSPENSION 30 ML UDCUP PO PRN (12:30)
[2021-10-20] MEDS ORDERED: ACETAMINOPHEN 325 MG TABLET PO PRN (12:30)
[2021-10-20 14:58] VITALS: BP 112/65
[2021-10-20] MEDS ORDERED: AMIODARONE HCL 540 MG in DEXTROSE 5%-WATER 239.2 ML IV ONE (15:00)
[2021-10-20 15:30] VITALS: BP 112/65
[2021-10-20] MEDS ORDERED: HEPARIN SODIUM,PORCINE 5,000 UNITS/ML VIAL SQ SCH (16:00)
[2021-10-20] MEDS: HEPARIN SODIUM,PORCINE 5,000 UNITS/ML VIAL SQ SCH ×2 (16:14→20:35)
[2021-10-20 20:05] VITALS: BP 110/63
[2021-10-20] MEDS: ATORVASTATIN CALCIUM 40 MG TABLET PO SCH (20:35)
[2021-10-20] MEDS: TICAGRELOR 90 MG TABLET PO SCH (20:35)
[2021-10-20] MEDS: METOPROLOL TARTRATE 25 MG TABLET PO SCH (20:35)
[2021-10-20] MEDS ORDERED: METOPROLOL TARTRATE 25 MG TABLET PO SCH (21:00)
[2021-10-21] VITALS (7 sets, daily range): BP systolic 110–122; BP diastolic 66–76
[2021-10-21] MEDS: ASPIRIN 81 MG CHEWABLE TABLET PO SCH (07:48)
[2021-10-21] MEDS: TICAGRELOR 90 MG TABLET PO SCH ×2 (07:49→08:28)
[2021-10-21] MEDS: FAMOTIDINE 20 MG TABLET PO SCH ×2 (07:49→20:10)
[2021-10-21] MEDS: HEPARIN SODIUM,PORCINE 5,000 UNITS/ML VIAL SQ SCH ×2 (07:49→20:10)
[2021-10-21] MEDS: METOPROLOL TARTRATE 25 MG TABLET PO SCH ×2 (07:49→20:10)
[2021-10-21] MEDS ORDERED: AMIODARONE HCL 750 MG in DEXTROSE 5%-WATER 485 ML IV SCH (09:00)
[2021-10-21] MEDS ORDERED: FAMOTIDINE 20 MG TABLET PO SCH (09:00)
[2021-10-21 11:50] LABS: BASOPHILS % (AUTO) 0.8 % (0.0-2.0); HEMATOCRIT 33.6 % (41-53); HEMOGLOBIN 11.2 g/dL (13.5-17.5); LYMPHOCYTES # (AUTO) 0.6 K/uL (1.0-4.8); LYMPHOCYTES % (AUTO) 8.3 % (22.0-44.0); MEAN CORPUSCULAR HEMOGLOBIN 26.9 pg (26.0-34.0); MEAN CORPUSCULAR HGB CONC 33.3 G/dL (31.0-37.0); MEAN CORPUSCULAR VOLUME 81 fL (80-100); MONOCYTES # (AUTO) 0.7 K/uL (0.1-1.0); MONOCYTES % (AUTO) 9.7 % (2.0-9.0); NEUTROPHILS % (AUTO) 80.2 % (40.0-70.0); PLATELET COUNT (AUTO) 426 K/uL (150-450); RED BLOOD CELL COUNT(AUTO) 4.16 MIL/uL (4.50-5.90); RED CELL DISTRIBUTION WIDTH 15.2 % (11.5-14.5)
[2021-10-21 12:15] LABS: ALANINE AMINOTRANSFERASE 27 U/L (12-78); ALBUMIN 2.6 g/dL (3.4-5.0); ALKALINE PHOSPHATASE 42 U/L (46-116); ANION GAP 7 mmol/L (8-16); ASPARTATE AMINOTRANSFERASE 29 U/L (15-37); BILIRUBIN,TOTAL 0.6 mg/dL (0.1-1.0); CALCIUM, TOTAL 9.3 mg/dL (8.8-10.5); CARBON DIOXIDE 29 mmol/L (22-29); CHLORIDE 102 mmol/L (98-107); CREATININE 0.89 mg/dL (0.60-1.30); GLOMERULAR FILTR. RATE CALC > 60 mL/min (>60); GLUCOSE,RANDOM 100 mg/dL (70-110); PHOSPHORUS 1.8 mg/dL (2.5-4.9); POTASSIUM 3.2 mmol/L (3.5-5.1); SODIUM SERUM 138 mmol/L (136-145); UREA NITROGEN, BLOOD 15 mg/dL (7-18)
[2021-10-21] MEDS ORDERED: MAGNESIUM SULFATE 2 GM/WATER 50 ML IV ONE (19:15)
[2021-10-21] MEDS ORDERED: POTASSIUM PHOS,M-BASIC-D-BASIC 30 MMOL in DEXTROSE 5%-WATER 250 ML IV ONE (19:15)
[2021-10-21] MEDS: ATORVASTATIN CALCIUM 40 MG TABLET PO SCH (20:10)
[2021-10-21] MEDS ORDERED: POTASSIUM CHLORIDE 20 MEQ ER TABLET PO ONE (21:30)
[2021-10-22 04:32] VITALS: BP 130/75
[2021-10-22 07:05] LABS: ANION GAP 5 mmol/L (8-16); CALCIUM, TOTAL 9.7 mg/dL (8.8-10.5); CARBON DIOXIDE 28 mmol/L (22-29); CHLORIDE 102 mmol/L (98-107); CREATININE 0.88 mg/dL (0.60-1.30); GLUCOSE,RANDOM 95 mg/dL (70-110); PHOSPHORUS 2.7 mg/dL (2.5-4.9); POTASSIUM 3.3 mmol/L (3.5-5.1); SODIUM SERUM 135 mmol/L (136-145); UREA NITROGEN, BLOOD 13 mg/dL (7-18)
[2021-10-22 07:06] LABS: GLOMERULAR FILTR. RATE CALC > 60 mL/min (>60)
[2021-10-22 07:26] VITALS: BP 131/79
[2021-10-22] MEDS: ASPIRIN 81 MG CHEWABLE TABLET PO SCH (08:19)
[2021-10-22] MEDS: METOPROLOL TARTRATE 25 MG TABLET PO SCH (08:19)
[2021-10-22] MEDS: FAMOTIDINE 20 MG TABLET PO SCH (08:20)
[2021-10-22] MEDS: HEPARIN SODIUM,PORCINE 5,000 UNITS/ML VIAL SQ SCH (08:20)
[2021-10-22] MEDS ORDERED: POTASSIUM CHLORIDE 20 MEQ ER TABLET PO ONE (09:30)
[2021-10-22 11:14] VITALS: BP 118/69
[2021-10-22 15:40] VITALS: BP 109/69
[2021-10-22] MEDS ORDERED: METO25 PO (15:58)
== END 2021-10-22 16:50 | disposition home or self-care (01) | DRG 308 ==
LOC: EMS 08:35 → 5S 12:35
PROVIDERS: ADMIT Internal Medicine; ATTEND Internal Medicine
DX: I48.92 Unspecified atrial flutter (principal); E43 Unspecified severe protein-calorie malnutrition; C78.00 Secondary malignant neoplasm of unspecified lung; C18.9 Malignant neoplasm of colon, unspecified; R55 Syncope and collapse; K21.9 Gastro-esophageal reflux disease without esophagitis; M19.90 Unspecified osteoarthritis, unspecified site; E78.5 Hyperlipidemia, unspecified; I10 Essential (primary) hypertension; J44.9 Chronic obstructive pulmonary disease, unspecified; M10.9 Gout, unspecified; E87.6 Hypokalemia; F17.210 Nicotine dependence, cigarettes, uncomplicated; D64.9 Anemia, unspecified; Z20.822 Contact with and (suspected) exposure to COVID-19; I25.10 Atherosclerotic heart disease of native coronary artery without angina pectoris; Z95.5 Presence of coronary angioplasty implant and graft; Z92.21 Personal history of antineoplastic chemotherapy; Z88.8 Allergy status to other drugs, medicaments and biological substances; Z79.899 Other long term (current) drug therapy; Z68.20 Body mass index [BMI] 20.0-20.9, adult; Z82.49 Family history of ischemic heart disease and other diseases of the circulatory system
CPT/HCPCS: 71045; 80048; 80053; 81003; 82550; 83735; 83880; 84100; 84484; 85025; 85610; 85730; 93005; 93306; 97162; 99291; J0282; J1644; J3475; J3490; J7030; J7060; 36415-L1; 36415-TC

== ENCOUNTER 2022-12-06 17:16 | Inpatient (IN) | payer MEDICARE, MEDICAID ==
[~2022-12-06] VITALS: Ht 172.7 cm; Wt 56.0 kg
[~2022-12-06 17:16] MED LIST changes: -CHLO25TA3 PO; -FERR-89 PO; +FERR325T27 PO; +METO25 PO; -POTA8TAB PO; +TRAM-559 PO; -TRAM50TA4 PO
[2022-12-06] MEDS ORDERED: ATOR40TA71 PO (17:24)
[2022-12-06] MEDS ORDERED: SODIUM CHLORIDE 0.9% 1,000 ML IV ONE (18:15)
[2022-12-06] MEDS: MORPHINE SULFATE 2 MG/ML SYRINGE IVP ONE ×2 (18:29→18:44)
[2022-12-06 18:41] LABS: BASOPHILS % (AUTO) 0.3 % (0.0-2.0); EOSINOPHILS % (AUTO) 0 % (1.0-6.0); HEMATOCRIT 38.7 % (41-53); HEMOGLOBIN 12.8 g/dL (13.5-17.5); LYMPHOCYTES # (AUTO) 0.5 K/uL (1.0-4.8); LYMPHOCYTES % (AUTO) 6.1 % (22.0-44.0); MEAN CORPUSCULAR HEMOGLOBIN 30.9 pg (26.0-34.0); MEAN CORPUSCULAR VOLUME 94 fL (80-100); MONOCYTES # (AUTO) 0.7 K/uL (0.1-1.0); MONOCYTES % (AUTO) 7.8 % (2.0-9.0); NEUTROPHILS # (AUTO) 7.4 K/uL (1.8-7.7); PLATELET COUNT (AUTO) 347 K/uL (150-450); RED BLOOD CELL COUNT(AUTO) 4.13 MIL/uL (4.50-5.90); RED CELL DISTRIBUTION WIDTH 17.2 % (11.5-14.5)
[2022-12-06 18:43] LABS: NEUTROPHILS % (AUTO) 85.8 % (40.0-70.0)
[2022-12-06] MEDS ORDERED: KETOROLAC TROMETHAMINE 30 MG/ML VIAL IVP ONE (18:45)
[2022-12-06 18:56] LABS: ALANINE AMINOTRANSFERASE 329 U/L (12-78); ALBUMIN 3.3 g/dL (3.4-5.0); ALKALINE PHOSPHATASE 86 U/L (46-116); ANION GAP 11 mmol/L (8-16); ASPARTATE AMINOTRANSFERASE 430 U/L (15-37); CALCIUM, TOTAL 8.8 mg/dL (8.8-10.5); CARBON DIOXIDE 26 mmol/L (22-29); CHLORIDE 103 mmol/L (98-107); CREATININE 0.96 mg/dL (0.60-1.30); GLUCOSE,RANDOM 97 mg/dL (70-110); LIPASE 2970 U/L (73-393); SODIUM SERUM 140 mmol/L (136-145); TOTAL PROTEIN, SERUM 7.4 g/dL (6.4-8.2); UREA NITROGEN, BLOOD 10 mg/dL (7-18)
[2022-12-06 18:59] LABS: GLOMERULAR FILTR. RATE CALC > 60 mL/min (>60); POTASSIUM 2.5 mmol/L (3.5-5.1)
[2022-12-06] MEDS ORDERED: POTASSIUM CHLORIDE 20 MEQ ER TABLET PO PRN (19:15)
[2022-12-06 19:17] LABS: LACTIC ACID 1.8 mmol/L (0.4-2.0)
[2022-12-06] MEDS: POTASSIUM CHL 10 MEQ/WATER 50 ML IV PRN ×4 (20:13→23:22)
[2022-12-06 20:35] LABS: APPEARANCE,URINE CLEAR (CLEAR); GLUCOSE, URINE (UA) NEGATIVE (NEGATIVE); KETONES,URINE NEGATIVE (NEGATIVE); LEUKOCYTE ESTERASE ,URINE NEGATIVE (NEGATIVE); NITRATE,URINE NEGATIVE (NEGATIVE); OCCULT BLOOD,URINE SMALL (NEGATIVE); PH,URINE 6.5 (5.0-8.0); PROTEIN,URINE 300-600,SEE CONFIRM mg/dL (NEGATIVE); UROBILINOGEN,URINE <=1.0 mg/dL (<=1.0)
[2022-12-06 20:37] LABS: BILIRUBIN,URINE SMALL (NEGATIVE)
[2022-12-06 20:45] LABS: SULFOSALICYLIC ACID,URINE 4+ (Negative)
[2022-12-06 20:47] LABS: BACTERIA,URINE None Seen /HPF (None Seen)
[2022-12-06] MEDS ORDERED: OxyCODONE HCL/ACETAMINOPHEN 5-325 MG TABLET PO PRN (21:30)
[2022-12-06] MEDS ORDERED: MORPHINE SULFATE 2 MG/ML SYRINGE IVP PRN ×2 (21:30→23:00)
[2022-12-06] MEDS ORDERED: ACETAMINOPHEN 325 MG TABLET PO PRN ×2 (21:30→23:00)
[2022-12-06] MEDS ORDERED: POTASSIUM CHL 20 MEQ/0.9% NS 1,000 ML IV ONE (21:30)
[2022-12-06] MEDS ORDERED: ONDANSETRON HCL 4 MG/2 ML VIAL IVP PRN ×2 (21:30→23:00)
[2022-12-06 21:45] LABS: COVID AG,FIA SOURCE NASOPHARYNGEAL
[2022-12-06] MEDS ORDERED: MAGNESIUM HYDROXIDE SUSPENSION 30 ML UDCUP PO PRN (23:00)
[2022-12-06] MEDS ORDERED: IPRATROPIUM BROMIDE 0.5 MG/2.5 ML NEB SOLUTION NEB PRN (23:00)
[2022-12-06] MEDS ORDERED: ALBUTEROL SULFATE 2.5 MG/0.5 ML NEB SOLUTION NEB PRN (23:00)
[2022-12-06] MEDS ORDERED: HYDROCODONE/ACETAMINOPHEN 5-325 MG TABLET PO PRN (23:00)
[2022-12-06] MEDS ORDERED: ZOLPIDEM TARTRATE 5 MG TABLET PO PRN (23:00)
[2022-12-06] MEDS ORDERED: BISACODYL 10 MG RECTAL RECTAL SUPPOSITORY PR PRN (23:00)
[2022-12-06] MEDS ORDERED: PIPERACILLIN/TAZO 3.375 GM/D5W 50 ML IV ONE (23:15)
[2022-12-06] MEDS: DEXTROSE 5%-0.45% SODIUM CHL 1,000 ML IV SCH (23:27)
[2022-12-07 07:19] LABS: BASOPHILS % (AUTO) 0.4 % (0.0-2.0); EOSINOPHILS % (AUTO) 0.5 % (1.0-6.0); HEMATOCRIT 32.4 % (41-53); LYMPHOCYTES # (AUTO) 0.6 K/uL (1.0-4.8); LYMPHOCYTES % (AUTO) 8.3 % (22.0-44.0); MEAN CORPUSCULAR HEMOGLOBIN 32.3 pg (26.0-34.0); MEAN CORPUSCULAR VOLUME 95 fL (80-100); MONOCYTES # (AUTO) 0.7 K/uL (0.1-1.0); MONOCYTES % (AUTO) 10.3 % (2.0-9.0); NEUTROPHILS # (AUTO) 5.7 K/uL (1.8-7.7); NEUTROPHILS % (AUTO) 80.5 % (40.0-70.0); PLATELET COUNT (AUTO) 298 K/uL (150-450); RED BLOOD CELL COUNT(AUTO) 3.41 MIL/uL (4.50-5.90); RED CELL DISTRIBUTION WIDTH 17.5 % (11.5-14.5)
[2022-12-07 07:33] LABS: ALANINE AMINOTRANSFERASE 241 U/L (12-78); ALBUMIN 2.7 g/dL (3.4-5.0); ALKALINE PHOSPHATASE 76 U/L (46-116); AMYLASE 378 U/L (25-115); ANION GAP 7 mmol/L (8-16); ASPARTATE AMINOTRANSFERASE 250 U/L (15-37); BILIRUBIN,TOTAL 2.1 mg/dL (0.1-1.0); CALCIUM, TOTAL 7.7 mg/dL (8.8-10.5); CARBON DIOXIDE 28 mmol/L (22-29); CHLORIDE 107 mmol/L (98-107); CREATININE 0.95 mg/dL (0.60-1.30); GLUCOSE,RANDOM 98 mg/dL (70-110); LIPASE 542 U/L (73-393); PHOSPHORUS 1.7 mg/dL (2.5-4.9); SODIUM SERUM 142 mmol/L (136-145); TOTAL PROTEIN, SERUM 6.3 g/dL (6.4-8.2); UREA NITROGEN, BLOOD 8 mg/dL (7-18)
[2022-12-07 07:46] LABS: GLOMERULAR FILTR. RATE CALC > 60 mL/min (>60); POTASSIUM 2.7 mmol/L (3.5-5.1)
[2022-12-07] MEDS: DOCUSATE SODIUM 100 MG CAPSULE PO SCH ×2 (09:00→20:53)
[2022-12-07] MEDS: METOPROLOL TARTRATE 25 MG TABLET PO SCH ×2 (09:00→20:54)
[2022-12-07] MEDS: ATORVASTATIN CALCIUM 40 MG TABLET PO SCH (09:00)
[2022-12-07] MEDS: ALLOPURINOL 300 MG TABLET PO SCH (09:00)
[2022-12-07] MEDS: FENOFIBRATE 160 MG TABLET PO SCH (09:00)
[2022-12-07] MEDS: AmLODIPine BESYLATE 10 MG TABLET PO SCH (09:00)
[2022-12-07 09:15] VITALS: BP 153/71
[2022-12-07] MEDS ORDERED: MEBROFENIN TC99M/MCL ISOTOPE 1 EA INJ INJ ONE (10:20)
[2022-12-07] MEDS ORDERED: GADOTERATE MEGLUMINE 10 MMOL/20 ML VIAL IVP ONE (11:01)
[2022-12-07 11:57] VITALS: BP 150/75
[2022-12-07] MEDS: DEXTROSE 5%-0.45% SODIUM CHL 1,000 ML IV SCH ×2 (14:21→21:31)
[2022-12-07] MEDS: POTASSIUM CHLORIDE 20 MEQ ER TABLET PO PRN (14:22)
[2022-12-07] MEDS: POTASSIUM CHL 10 MEQ/WATER 50 ML IV PRN ×2 (14:22→16:05)
[2022-12-07] MEDS: PANTOPRAZOLE SODIUM 40 MG/VIAL IVP SCH (15:15)
[2022-12-07 16:27] VITALS: BP 149/70
[2022-12-07 20:00] VITALS: BP 134/74
[2022-12-08] VITALS: BP 151/70
[2022-12-08 04:00] VITALS: BP 148/69
[2022-12-08 06:28] LABS: BASOPHILS % (AUTO) 0.9 % (0.0-2.0); EOSINOPHILS % (AUTO) 5.1 % (1.0-6.0); HEMATOCRIT 32.9 % (41-53); HEMOGLOBIN 11.1 g/dL (13.5-17.5); LYMPHOCYTES # (AUTO) 0.8 K/uL (1.0-4.8); LYMPHOCYTES % (AUTO) 12.7 % (22.0-44.0); MEAN CORPUSCULAR HEMOGLOBIN 31.4 pg (26.0-34.0); MEAN CORPUSCULAR HGB CONC 33.8 G/dL (31.0-37.0); MEAN CORPUSCULAR VOLUME 93 fL (80-100); MONOCYTES # (AUTO) 0.7 K/uL (0.1-1.0); MONOCYTES % (AUTO) 10.5 % (2.0-9.0); NEUTROPHILS # (AUTO) 4.4 K/uL (1.8-7.7); NEUTROPHILS % (AUTO) 70.8 % (40.0-70.0); PLATELET COUNT (AUTO) 315 K/uL (150-450); RED BLOOD CELL COUNT(AUTO) 3.54 MIL/uL (4.50-5.90); RED CELL DISTRIBUTION WIDTH 17.6 % (11.5-14.5)
[2022-12-08 06:43] LABS: ALANINE AMINOTRANSFERASE 186 U/L (12-78); ALBUMIN 2.8 g/dL (3.4-5.0); ALKALINE PHOSPHATASE 73 U/L (46-116); AMYLASE 137 U/L (25-115); ANION GAP 8 mmol/L (8-16); ASPARTATE AMINOTRANSFERASE 145 U/L (15-37); BILIRUBIN,TOTAL 1.3 mg/dL (0.1-1.0); CALCIUM, TOTAL 8.2 mg/dL (8.8-10.5); CARBON DIOXIDE 27 mmol/L (22-29); CHLORIDE 108 mmol/L (98-107); CREATININE 0.79 mg/dL (0.60-1.30); GLUCOSE,RANDOM 80 mg/dL (70-110); LIPASE 309 U/L (73-393); SODIUM SERUM 143 mmol/L (136-145); TOTAL PROTEIN, SERUM 6.7 g/dL (6.4-8.2); UREA NITROGEN, BLOOD 9 mg/dL (7-18)
[2022-12-08 07:01] LABS: GLOMERULAR FILTR. RATE CALC > 60 mL/min (>60)
[2022-12-08 07:02] LABS: PHOSPHORUS 1.3 mg/dL (2.5-4.9); POTASSIUM 2.9 mmol/L (3.5-5.1)
[2022-12-08 07:31] VITALS: BP 145/71
[2022-12-08] MEDS: DOCUSATE SODIUM 100 MG CAPSULE PO SCH ×2 (09:00→20:19)
[2022-12-08] MEDS: PANTOPRAZOLE SODIUM 40 MG/VIAL IVP SCH (09:00)
[2022-12-08] MEDS ORDERED: POTASSIUM PHOS,M-BASIC-D-BASIC 30 MMOL in DEXTROSE 5%-WATER 250 ML IV ONE (09:15)
[2022-12-08] MEDS: AmLODIPine BESYLATE 10 MG TABLET PO SCH (09:23)
[2022-12-08] MEDS: FENOFIBRATE 160 MG TABLET PO SCH (09:23)
[2022-12-08] MEDS: ATORVASTATIN CALCIUM 40 MG TABLET PO SCH (09:23)
[2022-12-08] MEDS: ALLOPURINOL 300 MG TABLET PO SCH (09:23)
[2022-12-08] MEDS: METOPROLOL TARTRATE 25 MG TABLET PO SCH ×2 (09:24→20:18)
[2022-12-08] MEDS: POTASSIUM CHLORIDE 20 MEQ ER TABLET PO PRN ×2 (09:24→20:57)
[2022-12-08] MEDS ORDERED: MAGNESIUM SULFATE 2 GM/WATER 50 ML IV ONE (09:30)
[2022-12-08] MEDS: DEXTROSE 5%-0.45% SODIUM CHL 1,000 ML IV SCH ×2 (10:00→20:00)
[2022-12-08 11:35] VITALS: BP 148/82
[2022-12-08 15:30] VITALS: BP 129/71
[2022-12-08 20:00] VITALS: BP 131/69
[2022-12-08 20:42] LABS: ANION GAP 8 mmol/L (8-16); CALCIUM, TOTAL 8.3 mg/dL (8.8-10.5); CARBON DIOXIDE 26 mmol/L (22-29); CHLORIDE 105 mmol/L (98-107); CREATININE 0.89 mg/dL (0.60-1.30); GLOMERULAR FILTR. RATE CALC > 60 mL/min (>60); GLUCOSE,RANDOM 109 mg/dL (70-110); PHOSPHORUS 3.1 mg/dL (2.5-4.9); POTASSIUM 3.2 mmol/L (3.5-5.1); SODIUM SERUM 139 mmol/L (136-145); UREA NITROGEN, BLOOD 11 mg/dL (7-18)
[2022-12-09] VITALS: BP 143/67
[2022-12-09 04:00] VITALS: BP 147/70
[2022-12-09] MEDS: DEXTROSE 5%-0.45% SODIUM CHL 1,000 ML IV SCH (06:00)
[2022-12-09 06:11] LABS: BASOPHILS % (AUTO) 1.3 % (0.0-2.0); EOSINOPHILS % (AUTO) 7.4 % (1.0-6.0); HEMATOCRIT 32.6 % (41-53); LYMPHOCYTES # (AUTO) 0.9 K/uL (1.0-4.8); LYMPHOCYTES % (AUTO) 17.1 % (22.0-44.0); MEAN CORPUSCULAR HEMOGLOBIN 31.3 pg (26.0-34.0); MEAN CORPUSCULAR HGB CONC 33.9 G/dL (31.0-37.0); MEAN CORPUSCULAR VOLUME 93 fL (80-100); MONOCYTES # (AUTO) 0.6 K/uL (0.1-1.0); MONOCYTES % (AUTO) 11.5 % (2.0-9.0); NEUTROPHILS # (AUTO) 3.2 K/uL (1.8-7.7); NEUTROPHILS % (AUTO) 62.7 % (40.0-70.0); PLATELET COUNT (AUTO) 346 K/uL (150-450); RED BLOOD CELL COUNT(AUTO) 3.52 MIL/uL (4.50-5.90); RED CELL DISTRIBUTION WIDTH 17.8 % (11.5-14.5)
[2022-12-09 06:30] LABS: ALANINE AMINOTRANSFERASE 140 U/L (12-78); ALBUMIN 2.7 g/dL (3.4-5.0); ALKALINE PHOSPHATASE 75 U/L (46-116); ANION GAP 8 mmol/L (8-16); ASPARTATE AMINOTRANSFERASE 80 U/L (15-37); BILIRUBIN,TOTAL 0.9 mg/dL (0.1-1.0); CALCIUM, TOTAL 7.8 mg/dL (8.8-10.5); CARBON DIOXIDE 25 mmol/L (22-29); CHLORIDE 106 mmol/L (98-107); CREATININE 0.69 mg/dL (0.60-1.30); GLUCOSE,RANDOM 84 mg/dL (70-110); LIPASE 321 U/L (73-393); PHOSPHORUS 1.7 mg/dL (2.5-4.9); POTASSIUM 3.2 mmol/L (3.5-5.1); SODIUM SERUM 139 mmol/L (136-145); TOTAL PROTEIN, SERUM 6.5 g/dL (6.4-8.2); UREA NITROGEN, BLOOD 9 mg/dL (7-18)
[2022-12-09 06:31] LABS: GLOMERULAR FILTR. RATE CALC > 60 mL/min (>60)
[2022-12-09 07:34] VITALS: BP 139/69
[2022-12-09] MEDS: DOCUSATE SODIUM 100 MG CAPSULE PO SCH (08:23)
[2022-12-09] MEDS: PANTOPRAZOLE SODIUM 40 MG/VIAL IVP SCH (08:23)
[2022-12-09] MEDS: FENOFIBRATE 160 MG TABLET PO SCH (08:23)
[2022-12-09] MEDS: ATORVASTATIN CALCIUM 40 MG TABLET PO SCH (08:23)
[2022-12-09] MEDS: AmLODIPine BESYLATE 10 MG TABLET PO SCH (08:23)
[2022-12-09] MEDS: ALLOPURINOL 300 MG TABLET PO SCH (08:23)
[2022-12-09] MEDS: METOPROLOL TARTRATE 25 MG TABLET PO SCH (08:23)
[2022-12-09] MEDS: POTASSIUM CHLORIDE 20 MEQ ER TABLET PO PRN (08:31)
== END 2022-12-09 09:20 | disposition home or self-care (01) | DRG 444 ==
LOC: EMS 17:16 → 5S 12-07 04:00
PROVIDERS: ADMIT Internal Medicine; ATTEND Internal Medicine
PROC: 05HC33Z Insertion of Infusion Device into Left Basilic Vein, Percutaneous Approach (ICD-10-PCS; principal; 2022-12-08)
DX: K81.0 Acute cholecystitis (principal); K85.90 Acute pancreatitis without necrosis or infection, unspecified; E87.1 Hypo-osmolality and hyponatremia; I48.20 Chronic atrial fibrillation, unspecified; Z68.1 Body mass index [BMI] 19.9 or less, adult; E44.0 Moderate protein-calorie malnutrition; C18.9 Malignant neoplasm of colon, unspecified; C78.01 Secondary malignant neoplasm of right lung; R74.01 Elevation of levels of liver transaminase levels; E87.6 Hypokalemia; E83.42 Hypomagnesemia; E83.51 Hypocalcemia; D64.9 Anemia, unspecified; N40.0 Benign prostatic hyperplasia without lower urinary tract symptoms; I10 Essential (primary) hypertension; K21.9 Gastro-esophageal reflux disease without esophagitis; M10.9 Gout, unspecified; E78.5 Hyperlipidemia, unspecified; E78.00 Pure hypercholesterolemia, unspecified; Z20.822 Contact with and (suspected) exposure to COVID-19; K40.90 Unilateral inguinal hernia, without obstruction or gangrene, not specified as recurrent; K82.8 Other specified diseases of gallbladder; Z95.5 Presence of coronary angioplasty implant and graft; Z92.3 Personal history of irradiation; Z92.21 Personal history of antineoplastic chemotherapy; Z87.891 Personal history of nicotine dependence; Z85.118 Personal history of other malignant neoplasm of bronchus and lung; Z85.038 Personal history of other malignant neoplasm of large intestine; Z90.49 Acquired absence of other specified parts of digestive tract
CPT/HCPCS: 36245; 36569; 71045; 74176; 76705; 76937; 78226; 80048; 80053; 81001; 81002; 82140; 82150; 83605; 83690; 83735; 84100; 84132; 84145; 84484; 85025; 93005; 99285; A9537; C9113; J1885; J2270; J2543; J3475; J3480; J3490; J7030; J7060; 36415-L1; 36415-TC